=== PATIENT | female | born 1950 | race Caucasian/White ===

== ENCOUNTER 2018-08-01 14:06 | Outpatient (CLI) | payer MEDICARE, OTHER | END 2018-08-01 14:07 | disposition home or self-care (01) | LOC: BICMAMMO 14:06 | PROVIDERS: ATTEND Internal Medicine | DX: Z12.31 Encounter for screening mammogram for malignant neoplasm of breast (principal); Z80.3 Family history of malignant neoplasm of breast | CPT/HCPCS: 77063; 77067 ==

== ENCOUNTER 2019-11-28 23:56 | Observation (INO) | payer MEDICARE, OTHER ==
[2019-11-29] MEDS ORDERED: Adenosine 6 MG/2 ML VIAL ONE (00:02)
[2019-11-29] MEDS ORDERED: Diltiazem 125 MG/25 ML ONE (00:09)
[2019-11-29 00:21] LABS: #Basophils 0.1 thou/uL (0.0-0.2); #Eosinphils 0.4 thou/uL (0.0-0.7); #Lymphocytes 3.7 thou/uL (1.20-3.40); #Monocytes 0.8 thou/uL (0.11-0.59); #Neutrophils 5.5 thou/uL (1.40-6.50); %Basophils 0.7 % (0.0-1.0); %Eosinophils 3.8 % (0.0-10.0); %Lymphocytes 35.1 % (21.0-51.0); %Neutrophils 52.5 % (42.0-75.0); Mean Corpuscular HGB CONC 33.9 g/dL (32.0-36.0); Mean Corpuscular Hemoglobin 29.4 pg (27.0-31.0); Mean Corpuscular Volume 86.6 fL (78.0-98.0); Mean Platelet Volume 7.1 fL (7.4-10.4); Platelet Count 414 thou/uL (130-400); RBC Distribution Width 11.8 % (11.5-14.5); Red Blood Cell (RBC) Count 4.76 mill/uL (4.20-5.40); White Blood Cell (WBC) Count 10.5 thou/uL (4.8-10.8)
[2019-11-29 00:47] LABS: ALT (SGPT) 20 U/L (8-55); AST (SGOT) 24 U/L (5-34); Albumin 4.4 g/dL (3.4-4.8); Alkaline Phosphatase 179 U/L (40-110); Anion Gap 18 mmol/L (10-20); BUN (Urea Nitrogen) 24 mg/dL (9.8-20.1); Bilirubin, Total 0.6 mg/dL (0.2-1.2); Calc. Creatinine Clearance 0 mL/min (70-130); Calcium 9.2 mg/dL (7.8-10.44); Carbon Dioxide 26 mmol/L (23-31); Chloride 101 mmol/L (98-107); Estimated GFR-MDRD 45; Globulin 3.2 g/dL (2.4-3.5); Glucose 128 mg/dL (80-115); Protein, Total 7.6 g/dL (6.0-8.3); Sodium 142 mmol/L (136-145)
[2019-11-29] MEDS ORDERED: Acetaminophen 325 MG TAB PO PRN (01:40)
[2019-11-29] MEDS ORDERED: Senokot S 8.6-50 MG TAB PO PRN (01:40)
[2019-11-29] MEDS ORDERED: Potassium Chloride 20 MEQ TAB PO SCH (01:45)
[2019-11-29] MEDS ORDERED: Potassium Chloride 20 MEQ TAB ONE (01:51)
[2019-11-29] MEDS ORDERED: Sodium Chloride 0.9% 1,000 ML IV SCH (02:00)
[2019-11-29] MEDS ORDERED: Diltiazem 125 MG in Sodium Chloride 0.9% 100 ML IVPB SCH (02:30)
[2019-11-29 03:29] LABS: #Eosinphils 0.1 thou/uL (0.0-0.7); #Lymphocytes 1.3 thou/uL (1.20-3.40); #Monocytes 0.5 thou/uL (0.11-0.59); #Neutrophils 9.3 thou/uL (1.40-6.50); %Basophils 0.4 % (0.0-1.0); %Eosinophils 0.5 % (0.0-10.0); %Lymphocytes 11.6 % (21.0-51.0); %Monocytes 4.3 % (0.0-10.0); %Neutrophils 83.3 % (42.0-75.0); Hemoglobin 11.9 g/dL (12.0-16.0); Mean Corpuscular HGB CONC 34.1 g/dL (32.0-36.0); Mean Corpuscular Hemoglobin 29.6 pg (27.0-31.0); Mean Corpuscular Volume 86.7 fL (78.0-98.0); Mean Platelet Volume 6.7 fL (7.4-10.4); Platelet Count 333 thou/uL (130-400); RBC Distribution Width 11.6 % (11.5-14.5); Red Blood Cell (RBC) Count 4.02 mill/uL (4.20-5.40); White Blood Cell (WBC) Count 11.2 thou/uL (4.8-10.8)
--- NOTE | 2019-11-29 03:32 | HP ---
CHIEF COMPLAINT: Palpitations. HISTORY OF PRESENT ILLNESS: The patient is a very pleasant 69-year-old female with a past medical history of hypertension, hyperlipidemia, and hypothyroidism, who presents to the hospital with complaints of palpitations x1 day today. The patient states that she was sweeping, when she started feeling unwell. She stated that she could hear her heart in her neck, felt very diaphoretic, felt like almost that she is going to pass out. At this time, her symptoms did not resolve when she sat down and put a cold wash rag on her face. It did not help her, so she called her son to call the EMS. The patient states that this has happened to her about 8 to 9 episodes in the past 6 months and this has been going on for about over a year. She states that her symptoms normally would not last very long. They will resolve when she sat down in a chair, wash her face, or put a cool rag on her face. She states, however, today it did not resolve, so she came into the hospital. ED COURSE: She was found to be in SVT. She was given adenosine. She had a pause as expected and then went into a brief moment of atrial fibrillation and currently she has sinus tach. She currently denies any fevers or chills, any nausea, vomiting, diarrhea, or any shortness of breath. She states that she has some shortness of breath when she has these episodes. No chest pain or chest tightness. PAST MEDICAL HISTORY: Hypertension, hyperlipidemia, and hypothyroidism. SURGICAL HISTORY: Tubal ligation, eye surgery, and hysterectomy. FAMILY HISTORY: Mother had colon cancer. Brother had liver cancer. SOCIAL HISTORY: Denies any alcohol use, drug use, or smoking history. She is a full code. Lives alone. She is retired. ALLERGIES: NO KNOWN DRUG ALLERGIES. MEDICATIONS: She takes lisinopril, hydrochlorothiazide, Synthroid, and potassium. She currently cannot recall the doses. REVIEW OF SYSTEMS: All negative except for the ones mentioned above in the HPI. PHYSICAL EXAMINATION: VITAL SIGNS: Temperature of 98.0, respirations 14, oxygen saturation 96% on room air, blood pressure 162/84, and pulse 99. GENERAL: She is awake, alert, and oriented x3. Does not appear in distress. CV: S1 and S2 present. Sinus tach. No murmurs heard. LUNGS: Clear to auscultation. No rhonchi or wheezes noted. ABDOMEN: Soft, obese. Bowel sounds are present x2. EXTREMITIES: No edema. Pedal pulses are present x2. NEUROVASCULAR: There are no focal deficits noted. SKIN: No cuts, lesions, or bruises noted. LABORATORY RESULTS: Sodium of 142, potassium of 3.0, BUN of 24, and creatinine of 1.19. LFTs are normal. Alkaline phosphatase is mildly elevated at 179. WBCs of 10.5, hemoglobin of 14.0, hematocrit of 41.2, and platelets of 414. IMAGING DATA: Chest x-ray; no acute abnormalities noted, however, just mild congestion may be. EKG; she has sinus tach currently. ASSESSMENT AND PLAN: The patient is a very pleasant 69-year-old female, who presents to the hospital with chest palpitations. 1. Supraventricular tachycardia. She is currently cardioverted. She got adenosine. She was in a brief rhythm of atrial fibrillation and then currently she has sinus tach. We will consult Cardiology. We will keep her n.p.o. after midnight. We will start her on some gentle hydration. She is currently on Cardizem, we will continue that for now. We will check a TSH. The patient stated that this has been going on for quite a long time. She has not really mentioned it to her primary care doctor. I will hold off on doing any further imaging for underlying cause of her supraventricular tachycardia given the fact that this has been going on for multiple months. I will, however, get an echocardiogram. The patient also states that she has been under a lot of stress recently. 2. Hypertension. We will continue her home medications. 3. Hyperlipidemia. We will continue her home medications. 4. Hypothyroidism. We will continue her Synthroid. 5. Deep venous thrombosis prophylaxis. We will put patient on SCDs. 6. Acute kidney injury, unknown patient's last creatinine. We will continue some gentle hydration and check her labs in the morning. Job ID: [id number]
[2019-11-29 03:55] LABS: Anion Gap 14 mmol/L (10-20); BUN (Urea Nitrogen) 22 mg/dL (9.8-20.1); Calc. Creatinine Clearance 0 mL/min (70-130); Calcium 8.3 mg/dL (7.8-10.44); Carbon Dioxide 25 mmol/L (23-31); Chloride 105 mmol/L (98-107); Estimated GFR-MDRD 62; Glucose 139 mg/dL (80-115); Potassium 3.5 mmol/L (3.5-5.1); Sodium 140 mmol/L (136-145)
[2019-11-29 04:02] LABS: Troponin I 0.022 ng/mL (< 0.028)
[2019-11-29 07:14] LABS: Troponin I 0.027 ng/mL (< 0.028)
--- NOTE | 2019-11-29 08:00 | RAD ---
RADIOGRAPH CHEST 1 VIEW: DATE: 11/28/2019 HISTORY: 69-year-old female with palpitations FINDINGS: There are no airspace densities, pulmonary edema, pneumothorax, or cardiomegaly. The lateral costophr enic angles are sharp. IMPRESSION: No acute cardiopulmonary findings.
[2019-11-29 08:46] VITALS: BMI 35.0
[2019-11-29] MEDS: Aspirin 325 MG TAB PO SCH (10:25)
[2019-11-29] MEDS: Enoxaparin Sodium 40 MG/0.4 ML SYRINGE SC SCH (13:55)
[2019-11-29] MEDS: Digoxin 0.25 MG TAB PO SCH ×2 (13:56→18:32)
--- NOTE | 2019-11-29 15:47 | CON ---
DATE OF CONSULTATION: 11/29/2019 REASON FOR CONSULTATION: SVT. HISTORY OF PRESENT ILLNESS: Ms. Wheat is a 69-year-old woman, who recently presented with SVT. She was cardioverted with adenosine. She states she has episodes of tachycardia on a monthly basis. No syncope or presyncope present. No chest pain or pressure noted. Please see Dr. Darlin Dgigs's full consultation for details. PHYSICAL EXAMINATION: GENERAL: Patient is a pleasant female, who is in no acute distress. The patient appears their stated age. VITAL SIGNS: Blood pressure 118/57, pulse 76, temperature 97.5. NEUROLOGIC: The patient is alert and oriented x3 with no focal neurologic deficits. HEENT: Sclerae without icterus. Mouth has moist mucous membranes with normal pallor. NECK: No JVD. Carotid upstroke brisk. No bruits bilaterally. LUNGS: Clear to auscultation with unlabored respirations. BACK: No scoliosis or kyphosis. CARDIAC: Regular rate and rhythm with normal S1 and S2. No S3 or S4 noted. No significant rubs, murmurs, thrills, or gallops noted throughout the precordium. PMI is not displaced. There is no parasternal heave. ABDOMEN: Soft, nontender, nondistended. No peritoneal signs present. No hepatosplenomegaly. No abnormal striae. EXTREMITIES: 2+ femoral and 2+ dorsalis pedis pulses. No cyanosis, clubbing, or edema. SKIN: No gross abnormalities. PERTINENT LABORATORY DATA: Hemoglobin 11. Creatinine 0.91. IMPRESSION: Supraventricular tachycardia. RECOMMENDATIONS: Discussed ablation versus medical therapy. The patient opted for medical therapy. I would recommend the followin. Loading digoxin 0.25 mg one p.o. q.6 hours x4, then decreased to 0.125 mg one p.o. q.a.m. 2. Add Cardizem 120 one p.o. q.a.m. 3. Discontinue amlodipine. Recommend to follow up with Shameka Barnes in the next 1 to 2 weeks. Job ID: [id number]
[2019-11-29] MEDS ORDERED: Atorvastatin Calcium 20 MG TAB PO SCH (21:00)
--- NOTE | 2019-11-29 22:50 | CON ---
DATE OF CONSULTATION: 11/29/2019 CONSULTING PHYSICIAN: Nurys Marte MD CONSULTING PLASTIC JIG AND FIXTURE BUILDER: Lincoln Fowler MD HISTORY OF PRESENT ILLNESS: Lizzy Wheat is a 69-year-old female with hypertension and hyperlipidemia, hypothyroidism, who presented to the ER for continuous palpitations. The patient tells me she has been having these episodes for monthly for the past several months, in which she has previously self-terminated the episodes by splashing cold water in her face and sitting down. However, it did not resolve yesterday prompting her visit to the ER. She was found to be in SVT with heart rate of 188 and then she was given 12 mg of adenosine. ER report stated that the underlying rhythm was found to be atrial fibrillation with RVR, and so she was given IV diltiazem push and started on Cardizem drip, and admitted to Tele. Since then, the patient said she has felt fine. No longer experienced any type of symptoms. Tele monitor shows she has been in normal sinus rhythm, rate controlled on 5 of Cardizem. She denies any prior cardiac history or any stress test done previously. Denies ever having any chest pain or any presyncopal or syncopal symptoms due to these palpitations. PAST MEDICAL HISTORY: Hypertension, hyperlipidemia, hypothyroidism. HOME MEDICATIONS: 1. Triamterene-hydrochlorothiazide 75-50 mg 0.5 tab p.o. daily. 2. Levothyroxine 75 mcg p.o. daily. 3. Amlodipine 10 mg p.o. daily. 4. Atorvastatin 20 mg p.o. at bedtime. 5. K-Dur 20 mEq p.o. daily. FAMILY HISTORY: Brother with cardiac history, in which she is unsure what that entails, otherwise unremarkable. SOCIAL HISTORY: Denies TAD. ALLERGIES: NKDA. REVIEW OF SYSTEMS: Ten-point review of systems is otherwise unremarkable aside from what is listed above. PHYSICAL EXAMINATION: VITAL SIGNS: Temperature 97.5, pulse 76 BPM, respiration 16 RR per minute, O2 saturation 97% on room air, blood pressure 119/57. GENERAL: Awake, alert, and oriented x3. Does not appear to be in acute distress. HEENT: Normocephalic, atraumatic. Extraocular movements intact. NECK: Supple. CHEST: Clear. CARDIAC: Pulmonic-systolic murmur 2/6, otherwise regular rate and rhythm. ABDOMEN: Obese, normoactive bowel sounds, no tenderness. EXTREMITIES: No edema or cyanosis. NEUROLOGIC: Grossly intact. SKIN: Warm and dry. LABORATORY DATA: Includes WBC 11.2, hemoglobin 11.9, hematocrit 34.9, platelets 333, neutrophils 83.3%. No bandemia. Chem reveal sodium 140, potassium 3.5, chloride 105, carbon dioxide 25, BUN 22, creatinine 0.9, and GFR 62. Hemoglobin A1c 5.0. Troponins less than 0.010, 0.022, 0.027. TSH 2.8. CARDIOVASCULAR STUDIES: EKG shows sinus tachycardia with first-degree AV block. Tele monitoring overnight reveals the patient is in normal sinus rhythm with no signs of atrial fibrillation with RVR. IMAGING DATA: Chest x-ray with no acute abnormalities noted. ASSESSMENT AND PLAN: Ms. Wheat is a pleasant 69-year-old female, whom we were consulted on for supraventricular tachycardia and atrial fibrillation with rapid ventricular response. 1. Supraventricular tachycardia/atrial fibrillation with rapid ventricular response: She has had successful chemical cardioversion with adenosine and has been in normal sinus rhythm. Hemodynamically stable. In the ER, she was not a brief rhythm with atrial fibrillation; however, has been in normal sinus rhythm since moving up to Tele. We will obtain an echo to rule out structural abnormalities. However, there is no obvious clear cause for her episode of SVT. We did discuss ablation versus continuing on oral medications and the patient is opting for oral medications. This decision is reasonable since her symptoms are mild, never having any presyncopal or syncopal episodes. We will go ahead and discontinue IV diltiazem, change her p.o., and then start her on loaded with p.o. digoxin 0.25 mcg for 24 hours, followed by 0.125 mcg daily. She will follow up with us in clinic. 2. Hypertension. We will discontinue her amlodipine since we are starting her on diltiazem. 3. Hyperlipidemia. Continue home medications. 4. Hypothyroidism. Continue home medications. DISPOSITION: From our point of view, she is stable to go home when she has received her first p.o. dose of Cardizem and digoxin. She was given instructions should she experience any recurrent symptoms or worsening, to go ahead and return to the hospital. Job ID: [id number]
[2019-11-30] MEDS: Digoxin 0.25 MG TAB PO SCH ×2 (00:29→06:21)
[2019-11-30] MEDS ORDERED: Levothyroxine Sodium 75 MCG TAB PO SCH (06:00)
[2019-11-30] MEDS: Aspirin 325 MG TAB PO SCH (07:47)
[2019-11-30] MEDS: Enoxaparin Sodium 40 MG/0.4 ML SYRINGE SC SCH (07:49)
[2019-11-30 08:23] VITALS: BP 120/59; TEMP 98.1
[2019-11-30] MEDS ORDERED: Amlodipine 10 MG TAB PO SCH (09:00)
[2019-11-30] MEDS ORDERED: Potassium Chloride 20 MEQ TAB PO SCH (09:00)
[2019-11-30] MEDS ORDERED: Triamterene/Hydrochlorothiazid 75 mg/50 mg Tablet PO SCH (09:00)
--- NOTE | 2019-11-30 11:21 | EKG ---
Test Reason : Blood Pressure : / mmHG Vent. Rate : 108 BPM Atrial Rate : 108 BPM P-R Int : 216 ms QRS Dur : 080 ms QT Int : 328 ms P-R-T Axes : 035 -25 017 degrees QTc Int : 439 ms Sinus tachycardia with 1st degree A-V block Otherwise normal ECG #2 Confirmed by HUGO QUEEN, QUINN Jeter ([id number]), city editor MARCIAL ALEGRIA ([id number]) on 11/30/2019 11:21:17 AM Referred By: Confirmed By:QUINN ARIAS MD
--- NOTE | 2019-11-30 11:21 | EKG ---
Test Reason : Blood Pressure : / mmHG Vent. Rate : 184 BPM Atrial Rate : 277 BPM P-R Int : 000 ms QRS Dur : 076 ms QT Int : 260 ms P-R-T Axes : 000 -23 024 degrees QTc Int : 455 ms Supraventricular tachycardia Abnormal ECG #1 Confirmed by HUGO QUEEN, QUINN Jeter ([id number]), editor farm journal MARCIAL ALEGRIA ([id number]) on 11/30/2019 11:21:11 AM Referred By: Confirmed By:QUINN ARIAS MD
--- NOTE | 2019-11-30 12:10 | DIS ---
DATE OF ADMISSION: 11/29/2019 DATE OF DISCHARGE: 11/30/2019 PRIMARY CARE PROVIDER: Neeraj Mackenzie MD DISCHARGE DIAGNOSIS: Supraventricular tachycardia. CONDITION OF PATIENT ON THE DAY OF DISCHARGE: Stable. I assessed Ms. Wheat on the day of discharge. She denies any chest pain or shortness of breath. Vital signs are stable. S1 and S2 are heard, regular. Lungs are clear to auscultation bilaterally. CONSULTATIONS DURING THIS HOSPITALIZATION: Cardiology, Dr. Fowler. DISCHARGE MEDICATIONS: 1. Amlodipine has been discontinued. 2. She has been started on digoxin 0.125 mg daily. 3. Cardizem CD 120 mg daily. Otherwise, no change was made to her pre-admission home medications, which include; 1. Atorvastatin 20 mg at bedtime. 2. Levothyroxine 75 mcg daily. 3. Potassium chloride 20 mEq daily. 4. Triamterene/hydrochlorothiazide half a tablet daily. HOSPITAL COURSE: Ms. Wheat is a pleasant 69-year-old lady who was admitted to [facility] on November 29, 2019, for a supraventricular tachycardia, which terminated after she received adenosine intravenously. She was monitored on telemetry. She was seen by Cardiology Service. Amlodipine was discontinued and she has been started on digoxin after loading and Cardizem. She is being discharged home in a stable condition. On the day of discharge, she has sodium 140, potassium 3.5, and creatinine 0.91. White count is 11,200, hemoglobin 11.9, and platelet count 333,000. Her TSH was normal at 2.8063 during this admission. POST ACUTE CARE FOLLOWUP: With primary care provider in 3 days and with Cardiology Service in 1 to 2 weeks. ACTIVITY: No restrictions. DIET: Heart healthy diet. DISCHARGE DESTINATION: Home. Job ID: [id number]
[2019-12-01] MEDS ORDERED: Digoxin 0.125 MG TAB PO SCH (09:00)
== END 2019-11-30 10:27 | disposition home or self-care (01) ==
LOC: ERS 23:56 → ERHOLD 11-29 01:30 → 2SW 11-29 07:59
PROVIDERS: ADMIT Internal Medicine; ATTEND Internal Medicine
DX: I47.1 Supraventricular tachycardia (principal); I10 Essential (primary) hypertension; E78.5 Hyperlipidemia, unspecified; E03.9 Hypothyroidism, unspecified; N17.9 Acute kidney failure, unspecified; F32.9 Major depressive disorder, single episode, unspecified; I48.91 Unspecified atrial fibrillation; Z79.899 Other long term (current) drug therapy
CPT/HCPCS: 71045; 80048; 83036; 83735; 84484 ×2; 93005; 93306; 96361; 96365; 96366 ×2; 96375; 96376; 99291; G0378 ×3; 36415; 80053; 84443; 85025; J0153

== ENCOUNTER 2020-05-14 14:13 | Outpatient (CLI) | payer MEDICARE, OTHER ==
--- NOTE | 2020-05-14 15:42 | MMO ---
Bilateral MAMMO Bilat Diag DDI+MATTHEW. CLINICAL HISTORY: Patient is 69 years old and is seen for diagnostic exam. The patient has the stomach. The patient has no personal history of cancer. VIEWS: The views performed were: bilateral craniocaudal with tomosynthesis; bilateral mediolateral oblique with tomosynthesis; and bilateral mediolateral with tomosynthesis. FILMS COMPARED: The present examination has been compared to prior imaging studies performed at [facility] on 08/01/2018, 05/07/2020 and 05/14/2020. This study has been interpreted with the assistance of computer-aided detection. MAMMOGRAM FINDINGS: There are scattered fibroglandular densities. Finding 1: There is a new round mass measuring 5 millimeters with spiculated margins seen in the right breast at 11 o'clock. Finding 2: There is a stable focal asymmetry measuring 5 millimeters seen in the left breast. Finding 3: There is a new mass measuring 8 millimeters with microlobulated margins seen in the sub-areolar region of the left breast. IMPRESSION: FINDING 1: NEW MASS IN THE RIGHT BREAST IS SUSPICIOUS. AN ULTRASOUND-GUIDED BREAST BIOPSY IS RECOMMENDED. SOLID FINDINGS AND RECOMMENDATIONS WERE DISCUSSED WITH THE PATIENT PRIOR TO LEAVING THE FACILITY. ALL QUESTIONS ANSWERED. FINDING 2: STABLE FOCAL ASYMMETRY IN THE LEFT BREAST IS BENIGN. FINDING 3: NEW MASS IN THE SUB-AREOLAR REGION OF THE LEFT BREAST IS SUSPICIOUS. AN ULTRASOUND-GUIDED BREAST BIOPSY IS RECOMMENDED. MULTISEPTATED CYSTIC MASS FINDINGS AND RECOMMENDATIONS WERE DISCUSSED WITH THE PATIENT PRIOR TO LEAVING THE FACILITY. ALL QUESTIONS ANSWERED. THE RESULTS OF THIS EXAM WERE SENT TO THE PATIENT. ACR BI-RADS Category 4 - Suspicious abnormality - biopsy should be considered MAMMOGRAPHY NOTE: 1. A negative mammogram report should not delay a biopsy if a dominant of clinically suspicious mass is present. 2. Approximately 10% to 15% of breast cancers are not detected by mammography. 3. Adenosis and dense breasts may obscure an underlying neoplasm. Reported by: CARMEL SRINIVASAN MD Electonically Signed: [id number]
--- NOTE | 2020-05-14 16:16 | ULT ---
EXAM: LEFT BREAST ULTRASOUND: 05/14/20 HISTORY: Left breast ultrasound is performed to evaluate a mass in the retroareolar region of the left breast. There is a fairly well marginated multiloculated cystic mass in the 12 o'clock retroareolar region o f the left breast measuring 0.5 x 0.6 x 0.9 cm in size. This mass has a suspicious appearance and is new. IMPRESSION: Multiseptated cystic mass in the left breast retroareolar region 12 o'clock corresponding to the mass on mammography. BI-RADS 4: Suspicious Abnormality - Biopsy Should Be Considered Usually requires biopsy Ultrasound guided biopsy is recommended. Findings were discussed with the patient who is in agreement. Additionally, findings were discussed w colten Mackenzie. POS: OFF
--- NOTE | 2020-05-14 16:35 | ULT ---
EXAM: RIGHT BREAST ULTRASOUND: 05/14/20 Right unilateral limited breast ultrasound examination is performed with a history of evaluation of a n abnormal mammographic finding. There is a solid shadowing mass in the right breast at 11 o'clock, approximately 6 cm from the nipple . This mass measures approximately 0.5 x 0.6 x 0.7 cm in size. This certainly has a suspicious appear ance. The right axilla demonstrated no evidence for lymphadenopathy. IMPRESSION: BI-RADS 4: Suspicious Abnormality - Biopsy Should Be Considered Usually requires biopsy Solid poorly circumscribed shadowing mass in the right breast at 11 o'clock 6 cm from the nipple. Ult rasound guided right breast biopsy is being scheduled. Findings were discussed with the patient who understands. Additionally, findings were discussed with Dr. Mackenzie. POS: OFF
== END 2020-05-14 14:14 | disposition home or self-care (01) ==
LOC: BICMAMMO 14:13
PROVIDERS: ATTEND Internal Medicine
DX: R92.2 Inconclusive mammogram (principal); N64.89 Other specified disorders of breast; N63.41 Unspecified lump in right breast, subareolar; N63.13 Unspecified lump in the right breast, lower outer quadrant
CPT/HCPCS: 76642 ×2; 77066; G0279

== ENCOUNTER → 2020-05-28 | Day surgery (SDC) | payer MEDICARE, OTHER ==
--- NOTE | 2020-05-28 14:02 | MMO ---
FILMS COMPARED: The present examination has been compared to prior imaging studies performed at [facility] on 05/07/2020 and 05/14/2020. MAMMOGRAM FINDINGS: There is a new biopsy clip seen in the left breast. IMPRESSION: NEW BIOPSY CLIP IN THE LEFT BREAST IS CONFIRMED UTILIZING POST PROCEDURE MAMMOGRAM. Reported by: SORAIDA JOHNSON MD Electonically Signed: [id number]
--- NOTE | 2020-05-28 14:03 | MMO ---
FILMS COMPARED: The present examination has been compared to prior imaging studies performed at [facility] on 05/07/2020 and 05/14/2020. MAMMOGRAM FINDINGS: There is a new biopsy clip seen in the right breast. IMPRESSION: NEW BIOPSY CLIP IN THE RIGHT BREAST IS CONFIRMED UTILIZING POST PROCEDURE MAMMOGRAM. Reported by: SORAIDA JOHNSON MD Electonically Signed: [id number]
--- NOTE | 2020-05-28 14:45 | ULT ---
Left breast mass biopsy sonographic guided HISTORY: Left breast mass. FINDINGS: After explaining the procedure and answering all questions, the subtle hypoechoic mass at t he retroareolar superior aspect of the right breast at 12:00 position was visualized. Sterile technique, buffered local anesthesia, sonographic guidance, and a lateral approach were used to caref ully advance the tip of a 14-gauge biopsy needle to the level of the mass. A total of 2 14-gauge specimens were obtained and eventually submitted to pathology for evaluation. Material that was acquired was viable with some green gelatinous component. Localization clip was hannah rubi in the biopsy bed under sonographic control. Patient tolerated the procedure well and was eventually dismissed in good condition. IMPRESSION : Technically successful sonographic guided biopsy left breast mass. Initial morphologic appearance sug gests an old breast abscess. Pathology is pending.
--- NOTE | 2020-05-28 14:50 | ULT ---
Right breast mass biopsy sonographic guided HISTORY: Right breast mass. FINDINGS: After explaining the procedure and answering all questions, left breast biopsy was performe d. Attention was then turned to the right breast mass at the 11:00 position. Superior lateral quadrant. Sterile technique, buffered local anesthesia, sonographic guidance, and a lateral approach were used to carefully advance a 14-gauge core biopsy needle to the level of the mass. Position was confirmed with sonography. A total of 2 core specimens were obtained, yielding white confirmed material. Specimens were submitte d to pathology for evaluation. Localization clip was placed in the biopsy bed under sonographic control. Patient tolerated the procedure well and was eventually dismissed in good condition. IMPRESSION : Technically successful sonographic guided biopsy right breast mass. Pathology is pending.
== END ==
LOC: BICULT 12:48
PROVIDERS: ATTEND Internal Medicine
PROC: 0H9V3ZX Drainage of Bilateral Breast, Percutaneous Approach, Diagnostic (ICD-10-PCS; principal; 2020-05-28)
DX: C50.411 Malignant neoplasm of upper-outer quadrant of right female breast (principal); N60.82 Other benign mammary dysplasias of left breast
CPT/HCPCS: 19083; 88305; 88313; 88341; 88342

== ENCOUNTER 2020-06-15 07:29 | Outpatient (CLI) | payer MEDICARE, OTHER ==
[2020-06-15 11:30] LABS: #Basophils 0.1 thou/uL (0.0-0.2); #Eosinphils 0.2 thou/uL (0.0-0.7); #Lymphocytes 2.1 thou/uL (1.20-3.40); #Monocytes 0.4 thou/uL (0.11-0.59); #Neutrophils 3.2 thou/uL (1.40-6.50); %Basophils 0.9 % (0.0-1.0); %Eosinophils 3.2 % (0.0-10.0); %Lymphocytes 35.1 % (21.0-51.0); %Monocytes 7.4 % (0.0-10.0); %Neutrophils 53.5 % (42.0-75.0); Hemoglobin 12.4 g/dL (12.0-16.0); Mean Corpuscular HGB CONC 32.5 g/dL (32.0-36.0); Mean Corpuscular Hemoglobin 29.3 pg (27.0-31.0); Platelet Count 299 thou/uL (130-400); RBC Distribution Width 11.9 % (11.5-14.5); Red Blood Cell (RBC) Count 4.23 mill/uL (4.20-5.40)
[2020-06-15 11:41] LABS: Anion Gap 13 mmol/L (10-20); BUN (Urea Nitrogen) 27 mg/dL (9.8-20.1); Calc. Creatinine Clearance 0 mL/min (70-130); Calcium 8.6 mg/dL (7.8-10.44); Carbon Dioxide 25 mmol/L (23-31); Chloride 106 mmol/L (98-107); Estimated GFR-MDRD 63; Glucose 95 mg/dL (80-115); Potassium 3.8 mmol/L (3.5-5.1); Sodium 140 mmol/L (136-145)
[2020-06-15 17:57] LABS: SARS-CoV-2 MS2 Positive; SARS-CoV-2 N Gene Negative; SARS-CoV-2 S Gene Negative; SARS-CoV-2 by NAA Not Detected (NotDetected); SARS-CoV-2 orf1ab Negative
--- NOTE | 2020-06-16 16:12 | EKG ---
Test Reason : PREOP Blood Pressure : / mmHG Vent. Rate : 062 BPM Atrial Rate : 062 BPM P-R Int : 186 ms QRS Dur : 082 ms QT Int : 406 ms P-R-T Axes : -11 -11 038 degrees QTc Int : 412 ms Normal sinus rhythm Low voltage QRS Cannot rule out Anterior infarct , age undetermined Abnormal ECG No previous ECGs available Confirmed by CARLOS ALBERTO FAGAN ([id number]) on 06/16/2020 4:11:42 PM Referred By: Jacky VALENCIA Confirmed By:CARLOS ALBERTO FAGAN
== END 2020-06-15 07:30 | disposition home or self-care (01) ==
LOC: LABBT 07:29
PROVIDERS: ATTEND Specialist
DX: Z01.818 Encounter for other preprocedural examination (principal); Z20.828 Contact with and (suspected) exposure to other viral communicable diseases; C50.911 Malignant neoplasm of unspecified site of right female breast
CPT/HCPCS: 80048; 85025; 93005; U0003; 87635; 93010

== ENCOUNTER 2020-06-19 08:02 | Day surgery (SDC) | payer MEDICARE, OTHER ==
[2020-06-15 13:42] VITALS: BMI 31.4
[2020-06-19] MEDS ORDERED: EPHEDRINE 25 MG/5 ML SYRINGE ONE (09:09)
[2020-06-19] MEDS ORDERED: PROPOFOL 200 MG/20 ML VIAL ONE (09:09)
[2020-06-19] MEDS ORDERED: Lidocaine 1% PF 5 ML VIAL ONE (09:09)
[2020-06-19] MEDS ORDERED: Ondansetron PF 4 MG/2 ML Vial ONE (09:09)
[2020-06-19] MEDS ORDERED: Dexamethasone 20 MG/5 ML VIAL ONE (09:09)
[2020-06-19] MEDS ORDERED: Acetaminophen 500 MG TAB ONE (09:51)
[2020-06-19] MEDS ORDERED: Ketorolac Tromethamine 30 MG/ML VIAL ONE (09:51)
--- NOTE | 2020-06-19 09:56 | NM ---
Exam: Nuclear medicine lymphoscintigraphy HISTORY: Right breast cancer Comparison none TECHNIQUE: Patient administered a total of 0.434 mCi of technetium 99m filtered sulfur colloid subcut aneous. FINDINGS: There is a right axillary sentinel lymph node IMPRESSION: Right axillary sentinel lymph node.
[2020-06-19] MEDS ORDERED: Bupivacaine/Epinephrine 0.25% 30 ML VIAL ONE ×2 (11:45→14:14)
[2020-06-19] MEDS ORDERED: Isosulfan Blue 50 MG/5 ML VIAL ONE (12:17)
[2020-06-19] MEDS ORDERED: Fentanyl 100 MCG/2 ML VIAL ONE (12:33)
--- NOTE | 2020-06-19 15:49 | MMO ---
RIGHT BREAST NEEDLE LOCALIZATION WITH MAMMOGRAPHIC GUIDANCE: SURGICAL SPECIMEN: 06/19/20 HISTORY: Right breast calcifications. Previous biopsy. FINDINGS: Successful right breast needle localization in the CC projection with a 7.5 cm Gambell needle. Gambell ne edle and wire adjacent to the clip. There are no immediate postprocedure complications. TECHNIQUE: Consent was obtained to perform a right breast needle localization via the CC approach. Right breast was prepped and draped in a sterile fashion. 1% lidocaine, buffered with sodium bicarbonate used for local anesthesia. Under mammographic guidance, 7.5 cm Gambell needle and wire was advanced into the rig ht breast. Needle position was confirmed pre and post wire deployment. Needle and wire were secured t o the patient. No immediate or postprocedure complications. IMPRESSION: Successful right breast needle localization. SURGICAL SPECIMEN: Single mammographic view of the specimen demonstrates needle and wire. Findings were conveyed to Dr. Ibarra. IMPRESSION: Presence of the surgical clip in the radiographic specimen. POS: [facility]
[2020-06-19] MEDS ORDERED: HYDROcodone/Acetaminophen 5/325 mg Tablet ONE (16:27)
--- NOTE | 2020-06-22 14:24 | OP ---
DATE OF PROCEDURE: 06/19/2020 PREOPERATIVE DIAGNOSIS: Right breast cancer. POSTOPERATIVE DIAGNOSIS: Right breast cancer. PROCEDURES PERFORMED: 1. Right breast needle localized lumpectomy. 2. Right axillary sentinel lymph node mapping. 3. Right axillary sentinel lymph node biopsy. ANESTHESIA: General endotracheal. INDICATIONS: The patient is a 69-year-old white female. She has recently been diagnosed with a small breast cancer in the upper outer quadrant of the right breast. After discussing options regarding treatment, she has elected to proceed with breast conserving surgery. DESCRIPTION OF OPERATION: Informed consent was obtained. The patient had lymphoscintigraphy performed this morning revealing axillary sentinel lymph nodes. She also had right breast mammographic needle localization performed as this lesion was difficult to visualize with ultrasound. She was then taken to the operating room, where general anesthesia was obtained with the patient in supine position. Right nipple areolar area was infiltrated with 3 mL of Lymphazurin in the subdermal tissue, which was massaged for 5 minutes. Attention was turned first to the axilla. A transverse axillary incision was created and dissection carried deeply. Neoprobe was utilized to identify areas of maximum radio intensity. I also dissected along the blue lymphatics to identify the blue-stained lymph nodes. In so doing, I identified 4 separate sentinel lymph nodes. Each of these were removed intact and all investing lymphatics were divided between clamps and 3-0 silk ties. The wound was then closed in layers with 3-0 and 4-0 Monocryl. Additional local anesthetic was infiltrated during closure. Attention was turned to the right breast. The localizing needle proceeded in a vertical fashion entering superiorly and tracking inferiorly at about the 11 o'clock radian. I mapped out the location of the needle relative to the area of the previous cancer. A counter incision was created just below the needle insertion site. Dissection was carried through skin and subcutaneous tissue. The needle was dissected and after identifying the appropriate area of involvement with the tissue, the needle was removed and the wire was replaced to the counter incision. The tissue into which the wire entered was grasped with Allis clamps and a wide core of tissue was obtained around the needle extending into the breast. This specimen was removed intact and submitted for specimen mammography. This revealed that the clip was removed along with the localizing wire. Meticulous hemostasis was obtained within the wound. The wound was irrigated and then closed in layers with 3-0 and 4-0 Monocryl. Dermabond was placed externally on both incision sites. There were no complications. The patient tolerated the procedure well and was taken to the recovery room in stable condition. Job ID: [id number]
== END 2020-06-19 17:05 | disposition home or self-care (01) ==
LOC: SDC 08:02
PROVIDERS: ATTEND Specialist
PROC: 0HBT0ZZ Excision of Right Breast, Open Approach (ICD-10-PCS; principal; 2020-06-19)
PROC: 07B50ZX Excision of Right Axillary Lymphatic, Open Approach, Diagnostic (ICD-10-PCS; 2020-06-19)
DX: C50.811 Malignant neoplasm of overlapping sites of right female breast (principal); I10 Essential (primary) hypertension; E03.9 Hypothyroidism, unspecified; Z17.0 Estrogen receptor positive status [ER+]; Z79.899 Other long term (current) drug therapy
CPT/HCPCS: 19281; 19301; 38525; 38900; 76098; 78195; A9541; Q9968; 88307; 88342; J0690; J1100; J1885; J2405; J2704; J3010

== ENCOUNTER 2020-11-20 13:38 | Outpatient (CLI) | payer MEDICARE | END 2020-11-20 13:39 | disposition home or self-care (01) | LOC: BICMAMMO 13:38 | PROVIDERS: ATTEND Internal Medicine Hematology & Oncology | DX: Z13.820 Encounter for screening for osteoporosis (principal); C50.511 Malignant neoplasm of lower-outer quadrant of right female breast; M85.89 Other specified disorders of bone density and structure, multiple sites; Z79.811 Long term (current) use of aromatase inhibitors | CPT/HCPCS: 77080 ==

== ENCOUNTER 2021-07-07 14:49 | Outpatient (CLI) | payer MEDICARE, OTHER | END 2021-07-07 14:50 | disposition home or self-care (01) | LOC: BICMAMMO 14:49 | PROVIDERS: ATTEND Specialist | DX: Z08 Encounter for follow-up examination after completed treatment for malignant neoplasm (principal); Z85.3 Personal history of malignant neoplasm of breast | CPT/HCPCS: 77066; G0279 ==

== ENCOUNTER 2022-02-01 14:14 | Outpatient (CLI) | payer MEDICARE, OTHER | END 2022-02-01 14:15 | disposition home or self-care (01) | LOC: BICMAMMO 14:14 | PROVIDERS: ATTEND Internal Medicine Hematology & Oncology | DX: M81.8 Other osteoporosis without current pathological fracture (principal); C50.511 Malignant neoplasm of lower-outer quadrant of right female breast; M85.89 Other specified disorders of bone density and structure, multiple sites | CPT/HCPCS: 77080 ==

== ENCOUNTER 2022-02-27 15:30 | Emergency (ER) | payer MEDICARE, OTHER ==
[2022-02-27 15:51] LABS: #Lymphocytes 0.9 thou/uL (1.20-3.40); #Monocytes 0.4 thou/uL (0.11-0.59); #Neutrophils 3.2 thou/uL (1.40-6.50); %Basophils 0.9 % (0.0-1.0); %Eosinophils 0.8 % (0.0-10.0); %Lymphocytes 19.8 % (21.0-51.0); %Monocytes 7.9 % (0.0-10.0); %Neutrophils 70.6 % (42.0-75.0); Hemoglobin 13.6 g/dL (12.0-16.0); Mean Corpuscular HGB CONC 33.9 g/dL (32.0-36.0); Mean Corpuscular Volume 91.4 fL (78.0-98.0); Mean Platelet Volume 6.2 fL (7.4-10.4); Platelet Count 212 thou/uL (130-400); RBC Distribution Width 11.9 % (11.5-14.5); White Blood Cell (WBC) Count 4.5 thou/uL (4.8-10.8)
[2022-02-27 16:13] LABS: ALT (SGPT) 13 U/L (8-55); AST (SGOT) 17 U/L (5-34); Albumin 3.9 g/dL (3.4-4.8); Alkaline Phosphatase 79 U/L (40-110); Anion Gap 15 mmol/L (10-20); BUN (Urea Nitrogen) 17 mg/dL (9.8-20.1); Bilirubin, Total 0.7 mg/dL (0.2-1.2); Calc. Creatinine Clearance 0 mL/min (70-130); Calcium 8.4 mg/dL (7.8-10.44); Carbon Dioxide 26 mmol/L (23-31); Chloride 103 mmol/L (98-107); Globulin 2.8 g/dL (2.4-3.5); Glucose 99 mg/dL (80-115); Potassium 3.8 mmol/L (3.5-5.1); Protein, Total 6.7 g/dL (5.8-8.1); Sodium 140 mmol/L (136-145)
[2022-02-27] MEDS ORDERED: Lorazepam 2 MG/ML VIAL ONE (16:52)
[2022-02-27 17:36] LABS: Magnesium 1.9 mg/dL (1.6-2.6)
[2022-02-27 18:22] LABS: Bacteria/HPF 1+ HPF (None Seen); Bilirubin Negative (Negative); Blood, Urine Trace (Negative); Clarity Clear (Clear); Glucose, Urine (Dipstick) Normal (Negative); Ketone, Urine 40 mg/dL (Negative); Leukocyte 500 Leu/uL (Negative); Nitrite Negative (Negative); Protein, Urine (Dipstick) Negative (Neg-Trace); Specific Gravity, Urine 1.013 (1.002-1.036); Squamous Epithelial 0-3 HPF (0-3); Urobilinogen Normal mg/dL (Less than 2); WBC/HPF 21-50 HPF (0-3)
== END 2022-02-27 19:27 | disposition home or self-care (01) ==
LOC: ERS 15:30
DX: N39.0 Urinary tract infection, site not specified (principal); R53.1 Weakness; I10 Essential (primary) hypertension; E03.9 Hypothyroidism, unspecified; E78.5 Hyperlipidemia, unspecified; E78.00 Pure hypercholesterolemia, unspecified; E87.6 Hypokalemia; Z79.899 Other long term (current) drug therapy
CPT/HCPCS: 36415; 71045; 80053; 81003; 81015; 83735; 84443; 85025; 93005; 96374; J2060

== ENCOUNTER 2022-05-05 14:44 | Outpatient (CLI) | payer MEDICARE, OTHER ==
[2022-05-05 16:15] LABS: Hemoglobin 13.4 g/dL (12.0-15.5); Mean Corpuscular Hemoglobin 29.6 pg (27.0-33.0); Mean Corpuscular Volume 89.6 fl (81.6-98.3); Mean Platelet Volume 9.3 fl (7.4-10.4); Platelet Count 334 10x3/uL (150-450); RBC Distribution Width 13.2 % (11.5-14.5); Red Blood Cell (RBC) Count 4.53 10x6/uL (3.90-5.03); White Blood Cell (WBC) Count 7.5 10x3/uL (3.5-10.5)
[2022-05-05 16:25] LABS: INR-International Normal Ratio 0.9; Prothrombin Time 10.2 sec (9.5-12.1)
[2022-05-05 16:30] LABS: Anion Gap 14 mmol/L (10-20); BUN (Urea Nitrogen) 20 mg/dL (9.8-20.1); Calc. Creatinine Clearance 0 mL/min (70-130); Calcium 9.2 mg/dL (7.8-10.44); Carbon Dioxide 28 mmol/L (23-31); Chloride 104 mmol/L (98-107); Estimated GFR 54; Glucose 127 mg/dL (80-115); Potassium 4.2 mmol/L (3.5-5.1); Sodium 142 mmol/L (136-145)
== END 2022-05-05 14:45 | disposition home or self-care (01) ==
LOC: LABBT 14:44
PROVIDERS: ATTEND Internal Medicine Cardiovascular Disease
DX: Z01.812 Encounter for preprocedural laboratory examination (principal); Z20.822 Contact with and (suspected) exposure to COVID-19
CPT/HCPCS: 80048; 85027; 85610; 87811

== ENCOUNTER 2022-05-10 05:55 | Day surgery (SDC) | payer MEDICARE, OTHER ==
[2022-05-06 10:02] VITALS: BMI 32.0
[2022-05-10] MEDS ORDERED: Lidocaine 1% PF 5 ML VIAL ONE (06:55)
[2022-05-10] MEDS ORDERED: Heparin 10,000 UNITS/ 10 ML VIAL ONE (06:55)
[2022-05-10] MEDS ORDERED: fentaNYL Citrate/PF 100 MCG/2 ML SYRINGE ONE (07:03)
[2022-05-10] MEDS ORDERED: Propofol 500 MG/50 ML VIAL ONE (07:12)
[2022-05-10] MEDS ORDERED: Phenylephrine 10 MG/ML VIAL ONE (07:27)
[2022-05-10] MEDS ORDERED: PROPOFOL 200 MG/20 ML VIAL ONE (07:27)
[2022-05-10] MEDS ORDERED: ePHEDrine 50 MG/ML VIAL ONE (07:27)
== END 2022-05-10 12:31 | disposition home or self-care (01) ==
LOC: SDC 05:55
PROVIDERS: ATTEND Internal Medicine Cardiovascular Disease
PROC: 4A023FZ Measurement of Cardiac Rhythm, Percutaneous Approach (ICD-10-PCS; principal; 2022-05-10)
PROC: 4A0234Z Measurement of Cardiac Electrical Activity, Percutaneous Approach (ICD-10-PCS; 2022-05-10)
PROC: 02583ZZ Destruction of Conduction Mechanism, Percutaneous Approach (ICD-10-PCS; 2022-05-10)
PROC: 02K83ZZ Map Conduction Mechanism, Percutaneous Approach (ICD-10-PCS; 2022-05-10)
DX: I47.1 Supraventricular tachycardia (principal); I10 Essential (primary) hypertension; E03.9 Hypothyroidism, unspecified; E78.5 Hyperlipidemia, unspecified; Z79.82 Long term (current) use of aspirin; Z79.890 Hormone replacement therapy; Z79.899 Other long term (current) drug therapy
CPT/HCPCS: 93005; 93620; 93621; 93653; C1730; C1732; C1760 ×2; C1769 ×2; C1894; C2630; J1644; J2370; J2704; J3490

== ENCOUNTER 2022-08-19 13:16 | Outpatient (CLI) | payer MEDICARE, OTHER | END 2022-08-19 13:17 | disposition home or self-care (01) | LOC: BICMAMMO 13:16 | PROVIDERS: ATTEND Internal Medicine | DX: Z08 Encounter for follow-up examination after completed treatment for malignant neoplasm (principal); Z85.3 Personal history of malignant neoplasm of breast | CPT/HCPCS: 77066; G0279 ==

== ENCOUNTER 2023-04-13 15:11 | Outpatient (CLI) | payer MEDICARE, OTHER | END 2023-04-13 15:12 | disposition home or self-care (01) | LOC: BICMAMMO 15:11 | PROVIDERS: ATTEND Internal Medicine Hematology & Oncology | DX: M81.8 Other osteoporosis without current pathological fracture (principal); M85.89 Other specified disorders of bone density and structure, multiple sites | CPT/HCPCS: 77080 ==

== ENCOUNTER 2023-08-21 13:23 | Outpatient (CLI) | payer MEDICARE, OTHER | END 2023-08-21 13:24 | disposition home or self-care (01) | LOC: BICMAMMO 13:23 | PROVIDERS: ATTEND Internal Medicine | DX: Z08 Encounter for follow-up examination after completed treatment for malignant neoplasm (principal); Z85.3 Personal history of malignant neoplasm of breast | CPT/HCPCS: 77066; G0279 ==

== ENCOUNTER 2024-11-21 13:16 | Outpatient (CLI) | payer MEDICARE, OTHER | END 2024-11-21 13:17 | disposition home or self-care (01) | LOC: BICMAMMO 13:16 | PROVIDERS: ATTEND Internal Medicine | DX: Z08 Encounter for follow-up examination after completed treatment for malignant neoplasm (principal); Z80.3 Family history of malignant neoplasm of breast; Z85.3 Personal history of malignant neoplasm of breast; Z98.890 Other specified postprocedural states; Z91.89 Other specified personal risk factors, not elsewhere classified | CPT/HCPCS: 77066; G0279 ==

== ENCOUNTER 2025-06-02 14:28 | Outpatient (CLI) | payer MEDICARE, OTHER | END 2025-06-02 14:29 | disposition home or self-care (01) | LOC: BICMAMMO 14:28 | PROVIDERS: ATTEND Internal Medicine Hematology & Oncology | DX: M81.8 Other osteoporosis without current pathological fracture (principal); C50.511 Malignant neoplasm of lower-outer quadrant of right female breast | CPT/HCPCS: 77080 ==